=== PATIENT | female | born 1940 | race Caucasian/White ===

== ENCOUNTER → 2018-02-14 | Emergency (ER) | payer MEDICARE, OTHER ==
[~2018-02-14] VITALS: Ht 157.5 cm; Wt 77.1 kg
[~2018-02-14] MED LIST: IBUPROFEN600 MG ORAL; Ketorolac 30mg Inj IM ONE
[2018-02-14 22:42] VITALS: BP 132/63
--- NOTE | 2018-02-14 23:38 | Emergency Room Report ---
History of Present Illness General Chief Complaint: Headache Source: Patient Present Illness HPI Is a 77-year-old female with no significant past medical history. She presents with chief complaint of headache. She fell 2 weeks ago hit the back of her head. Since then she was having headache. She had a MRI done today and it show microvascular changes. She was concerned as when she came in. She said her headache is worse. Pain to the back her head. No nausea no vomiting. 7 out of 10. Taking Tylenol is not helping. Denies any other complaint. No focal deficit. Allergies: Coded Allergies: SULFAMETHOXAZOLE (Verified Allergy, Unknown, 02/14/18) TRIMETHOPRIM (Verified Allergy, Unknown, 02/14/18) Patient History Past Medical History: see triage record, old chart reviewed Past Surgical History: other Pertinent Family History: none Social History: Denies: smoking Now: No Immunizations: other Reviewed Nursing Documentation: PMH: Agreed; PSxH: Agreed Nursing Documentation-PMH Past Medical History: No Stated History Review of Systems Eye: Denies: eye pain, blurred vision ENT: Denies: ear pain, nose congestion, throat swelling Respiratory: Denies: cough, shortness of breath Cardiovascular: Denies: chest pain, palpitations Gastrointestinal: Denies: abdominal pain, diarrhea, nausea, vomiting Musculoskeletal: Denies: back pain, joint pain Skin: Denies: rash Neurological: Reports: headache; Denies: numbness Endocrine: Denies: increased thirst, increased urine Hematologic/Lymphatic: Denies: easy bruising All Other Systems: negative except mentioned in HPI Physical Exam Vital Signs Date Time Temp Pulse Resp B/P (MAP) Pulse Ox O2 Delivery O2 Flow Rate FiO2 02/14/18 22:37 97.7 68 18 146/81 97 Room Air vitals unremarkable Sp02 EP Interpretation: reviewed, normal General Appearance: well appearing, no apparent distress, alert Head: normocephalic, atraumatic Eyes: bilateral eye PERRL, bilateral eye EOMI ENT: hearing grossly normal, normal pharynx Neck: full range of motion, supple, no meningismus Respiratory: chest non-tender, lungs clear, normal breath sounds Cardiovascular #1: regular rate, rhythm, no murmur Gastrointestinal: normal bowel sounds, non tender, no mass, no organomegaly, no bruit, non-distended Musculoskeletal: back normal, gait/station normal, normal range of motion Psychiatric: anxious Skin: warm/dry Medical Decision Making Diagnostic Impression: Primary Impression: Headache Qualified Codes: G44.209 - Tension-type headache, unspecified, not intractable Additional Impression: Post-concussion headache ER Course Patient with postconcussive syndrome. Symptom probably worsened by the MRI reading of microvascular changes. Patient has the reading cervical and was very concerned. There was no tumor or bleed. I reassured the patient. Patient given Toradol. We'll discharge home. Last Vital Signs Date Time Temp Pulse Resp B/P (MAP) Pulse Ox O2 Delivery O2 Flow Rate FiO2 02/14/18 22:42 97.7 62 18 132/63 97 Room Air Status: improved Disposition: HOME, SELF-CARE Condition: Stable Scripts Ibuprofen* (MOTRIN*) 600 Mg Tablet 600 MG ORAL THREE TIMES A DAY, #30 TAB 0 Refills Prov: González Cortez MD 02/14/18 Additional Instructions: Follow-up with your doctor in 7 days. Return if worse. González Cortez MD Feb 14, 2018 23:37
[2018-02-15 00:40] VITALS: BP 132/63
== END | disposition home or self-care (01) ==
LOC: EMR 23:00
DX: G44.309 Post-traumatic headache, unspecified, not intractable (principal); F07.81 Postconcussional syndrome; Z88.2 Allergy status to sulfonamides
CPT/HCPCS: 96372; 99283; J1885